=== PATIENT | female | born 1980 | race Caucasian/White ===

== ENCOUNTER 2023-11-26 09:43 | Outpatient (CLI) | payer OTHER, SELFPAY ==
[2023-11-26 10:15] VITALS: PULSE 63; PULSE 65
[2023-11-26] MEDS: ALBUTEROL 0.083% 2.5 MG/3 ML NEB IH (10:15)
== END 2023-11-26 23:59 | disposition home or self-care (01) ==
LOC: RT 09:46
PROVIDERS: PCP Family Medicine; Visit Provider Nurse Practitioner
DX: R06.02 Shortness of breath (principal)
CPT/HCPCS: 94060; 94640; J7613